=== PATIENT | male | born 1970 | race Two or more races ===

== ENCOUNTER 2016-07-12 10:41 | Inpatient (IN) | payer MEDICAID ==
[~2016-07-12] VITALS: Ht 175.3 cm; Wt 74.9 kg
[~2016-07-12 10:41] MED LIST: ASPI81CH43; ENAL5TAB92 PO; GABA300C PO; HUMOLOG; HYDR-1421; IBUP200C14; INSLANTI SC; MULTCAP45; NAPR220C; [UNRECOGNIZED DRUG - CODE]
[2016-07-12 11:08] LABS: Basophils # (auto) 0.1 uL; Basophils % (auto) 1.8 % (0.0-2.0); Eosinophils # (auto) 0.1 uL; Eosinophils % (auto) 1.6 % (0.0-7.0); Hematocrit 47.3 % (41.0-53.0); Hemoglobin 15.9 g/dL (13.5-17.5); Lymphocytes # (auto) 1.4 uL; Lymphocytes % (auto) 35.2 % (10.0-50.0); Mean Corpuscular Hgb Conc. 33.7 g/dL (32.0-36.0); Mean Corpuscular Volume 97.8 fL (80.0-100.0); Mean Platelet Volume 7.5 fL (7.4-10.4); Monocytes # (auto) 0.3 uL; Monocytes % (auto) 8.8 % (0.0-12.0); Neutrophils # (auto) 2.1 uL; Neutrophils % (auto) 52.6 % (37.0-80.0); Platelet Count (auto) 186 10^3/uL (140-450); Red Cell Distribution Width 14.4 % (11.6-16.0); White Blood Cell 3.9 10^3/uL (4.4-10.8)
[2016-07-12] MEDS ORDERED: SODIUM CHLORIDE 0.9% 1,000 ML IVB ONE (11:34)
[2016-07-12 11:42] LABS: Albumin 3.7 g/dL (3.4-5.0); Alkaline Phosphatase 127 U/L (45-117); Anion Gap 17 (5-15); Aspartate Aminotransferase 163 U/L (15-37); BUN/Creatinine Ratio 8.4; Bilirubin, Total 0.8 mg/dL (0.2-1.0); Blood Urea Nitrogen 9 mg/dL (7-18); Calcium 9.2 mg/dL (8.5-10.1); Carbon Dioxide 24 mmol/L (21-32); Chloride 98 mmol/L (98-107); GFR African American 97 mL/min; GFR Non-African American 80 mL/min; Glucose 287 mg/dL (74-106); Sodium 139 mmol/L (136-145); Total Protein 7.7 g/dL (6.4-8.2)
[2016-07-12] MEDS ORDERED: FAMOTIDINE 20 MG TAB PO ONE (11:45)
[2016-07-12 11:55] LABS: Magnesium 2.4 mg/dL (1.6-2.6)
[2016-07-12 12:01] LABS: Potassium 5.9 mmol/L (3.5-5.1)
[2016-07-12] MEDS ORDERED: ATOR20TA50 PO (12:24)
[2016-07-12] MEDS ORDERED: TRAZ50TA2 PO (12:25)
[2016-07-12] MEDS ORDERED: DIPH2.5T73 PO (12:26)
[2016-07-12] MEDS ORDERED: SIMV10TA84 PO (12:29)
[2016-07-12] MEDS: THIAMINE INJ 100 MG, MULTIPLE VITAMIN 10 ML, FOLIC ACID 1 MG, MAGNESIUM SULF SDV 50% 8 ... IV SCH ×5 (12:29)
[2016-07-12] MEDS ORDERED: CALCIUM CHL 100MG/ML 1,000 MG in D5W 5% 100 ML IV ONE (13:15)
[2016-07-12] MEDS ORDERED: InsuLIN REG 1unit/0.01ml Soln (100units/ml) IV ONE (13:15)
[2016-07-12] MEDS ORDERED: ALBUTEROL SULF 2.5 MG/0.5ML(0.5%) NEB SOLN NEB ONE (13:15)
[2016-07-12] MEDS ORDERED: NALBUPHINE HCL 10 MG/1ml INJECTION IV ONE (13:15)
[2016-07-12] MEDS ORDERED: ONDANSETRON HCL 4 MG/2 ML VIAL IV ONE (13:15)
[2016-07-12] MEDS ORDERED: SODIUM BICARBONATE 8.4 % INJ 50ML VIAL IV ONE (13:15)
[2016-07-12] MEDS ORDERED: chlordiazePOXIDE HCL 5 MG CAP PO ONE (15:45)
[2016-07-12] MEDS ORDERED: NITROGLYCERIN 0.4 MG SL TAB SL PRN (15:45)
[2016-07-12] MEDS ORDERED: MORPHINE SULF INJ 2 MG/ML SYRINGE 1ML IV PRN (15:45)
[2016-07-12] MEDS ORDERED: DEXTROSE (50%) 50ML SYRG IV PRN (15:45)
[2016-07-12] MEDS ORDERED: THIAMINE HCL 100 MG/ML 2ML VIAL IV ONE (15:45)
[2016-07-12] MEDS ORDERED: LACTULOSE 20Gm/30ML SOLN PO PRN (15:45)
[2016-07-12] MEDS: SODIUM CHLORIDE 0.9% 1,000 ML IV SCH (16:10)
[2016-07-12] MEDS: ACCU-CHEK COMFORT CURVE STRIP VI SCH ×3 (16:10→23:48)
[2016-07-12] MEDS: InsuLIN REG 1unit/0.01ml Soln (100units/ml) SC SCH ×3 (16:10→23:52)
[2016-07-12] MEDS ORDERED: LORazepam 0.5 MG TAB PO PRN (17:45)
[2016-07-12] MEDS ORDERED: PROCHLORPERAZINE EDISYLATE 5 MG/ML 2ML VIAL IV PRN (17:45)
[2016-07-12] MEDS ORDERED: MORPHINE SULFATE 4 MG/ML SYRG IV PRN (17:45)
[2016-07-12] MEDS ORDERED: ACETAMINOPHEN 500 MG TAB PO PRN (17:45)
[2016-07-12] MEDS ORDERED: TEMAZEPAM 15 MG CAP PO PRN (17:45)
[2016-07-12] MEDS ORDERED: LORazepam 2MG/ML-1ML VIAL IV PRN (17:45)
[2016-07-12] MEDS: chlordiazePOXIDE HCL 5 MG CAP PO SCH ×2 (17:46→23:48)
[2016-07-12] MEDS ORDERED: DIPH25CA66 PO (19:33)
[2016-07-12] MEDS ORDERED: LOP2C PO (19:33)
[2016-07-12] MEDS ORDERED: MULTCHW OR (19:33)
[2016-07-12 20:34] LABS: BUN/Creatinine Ratio 11.3; Calcium 8.6 mg/dL (8.5-10.1); Potassium 4.2 mmol/L (3.5-5.1)
[2016-07-12 22:00] VITALS: BP 161/100
[2016-07-12 22:12] LABS: Urine Bilirubin Negative (Negative); Urine Color Yellow (Yellow); Urine Mucus FEW (None Seen); Urine Nitrite Negative (Negative); Urine RBC 1 /hpf (0 - 3); Urine Squamous Epithelial Cell FEW /hpf (<5); Urine Urobilinogen Normal (Negative); Urine pH 5.5 (5.0-8.0)
[2016-07-12 22:15] LABS: Urine Blood 2+ /uL (Negative); Urine Glucose 4+ mg/dL (Normal); Urine Ketone 2+ (Negative)
[2016-07-13] MEDS: SODIUM CHLORIDE 0.9% 1,000 ML IV SCH ×3 (01:48→21:41)
[2016-07-13] MEDS: ACCU-CHEK COMFORT CURVE STRIP VI SCH ×5 (03:40→20:00)
[2016-07-13] MEDS: InsuLIN REG 1unit/0.01ml Soln (100units/ml) SC SCH ×5 (03:40→20:49)
[2016-07-13 05:00] VITALS: BP 125/79
[2016-07-13] MEDS: chlordiazePOXIDE HCL 5 MG CAP PO SCH ×4 (05:41→23:51)
[2016-07-13 06:15] LABS: Potassium 4.7 mmol/L (3.5-5.1)
[2016-07-13 06:37] LABS: Albumin 2.9 g/dL (3.4-5.0); Bilirubin, Total 1.4 mg/dL (0.2-1.0); Calcium 8.7 mg/dL (8.5-10.1)
[2016-07-13 08:00] VITALS: BP 130/78
[2016-07-13] MEDS: THIAMINE HCL 100 MG/ML 2ML VIAL IV SCH (09:32)
[2016-07-13] MEDS: HYDROcodone-ACET 5/325MG TAB PO PRN ×2 (09:33→17:32)
[2016-07-13 12:00] VITALS: BP 127/80
[2016-07-13] MEDS: THIAMINE INJ 100 MG, MULTIPLE VITAMIN 10 ML, FOLIC ACID 1 MG, MAGNESIUM SULF SDV 50% 8 ... IV SCH ×5 (12:12)
[2016-07-13 17:00] VITALS: BP 131/82
[2016-07-13 21:30] VITALS: BP 136/83
[2016-07-14] MEDS: InsuLIN REG 1unit/0.01ml Soln (100units/ml) SC SCH ×7 (00:18→23:55)
[2016-07-14] MEDS: ACCU-CHEK COMFORT CURVE STRIP VI SCH ×7 (00:18→23:55)
[2016-07-14 05:00] VITALS: BP 142/87
[2016-07-14] MEDS: HYDROcodone-ACET 5/325MG TAB PO PRN (05:33)
[2016-07-14] MEDS: chlordiazePOXIDE HCL 5 MG CAP PO SCH ×4 (06:00→23:55)
[2016-07-14 06:18] LABS: Basophils # (auto) 0 uL; Basophils % (auto) 0.3 % (0.0-2.0); Eosinophils # (auto) 0.1 uL; Eosinophils % (auto) 1.3 % (0.0-7.0); Hematocrit 32.7 % (41.0-53.0); Hemoglobin 11.1 g/dL (13.5-17.5); Lymphocytes % (auto) 18.8 % (10.0-50.0); Mean Corpuscular Hemoglobin 33.4 pg (28.0-32.0); Mean Corpuscular Hgb Conc. 34.1 g/dL (32.0-36.0); Mean Corpuscular Volume 98.1 fL (80.0-100.0); Mean Platelet Volume 9.3 fL (7.4-10.4); Monocytes # (auto) 0.6 uL; Monocytes % (auto) 11.8 % (0.0-12.0); Neutrophils # (auto) 3.6 uL; Neutrophils % (auto) 67.8 % (37.0-80.0); Platelet Count (auto) 135 10^3/uL (140-450); Red Cell Distribution Width 14.2 % (11.6-16.0); White Blood Cell 5.3 10^3/uL (4.4-10.8)
[2016-07-14 06:34] LABS: Partial Thromboplastin Time 20.8 sec (22.64-33.71); Prothrombin Time 9.4 sec (9.37-12.3)
[2016-07-14 06:47] LABS: INR 0.87 (0.9-1.15)
[2016-07-14 06:49] LABS: Potassium 4.2 mmol/L (3.5-5.1)
[2016-07-14 06:54] LABS: BUN/Creatinine Ratio 15.1; Calcium 8.4 mg/dL (8.5-10.1)
[2016-07-14 06:56] LABS: Bilirubin, Total 1.2 mg/dL (0.2-1.0); Total Protein 6.3 g/dL (6.4-8.2)
[2016-07-14] MEDS: SODIUM CHLORIDE 0.9% 1,000 ML IV SCH ×2 (07:41→17:24)
[2016-07-14 08:00] VITALS: BP 108/79
[2016-07-14] MEDS: THIAMINE HCL 100 MG/ML 2ML VIAL IV SCH (09:42)
[2016-07-14] MEDS: THIAMINE INJ 100 MG, MULTIPLE VITAMIN 10 ML, FOLIC ACID 1 MG, MAGNESIUM SULF SDV 50% 8 ... IV SCH ×5 (12:00)
[2016-07-14] MEDS ORDERED: CLINDAMYCIN 600MG IV 50 ML IV ONE (12:16)
[2016-07-14] MEDS ORDERED: fentaNYL CITRATE 100 MCG/2 ML VL ONE ×2 (12:54→13:39)
[2016-07-14] MEDS ORDERED: MIDAZOLAM HCL 1MG/1ML-2 ML VIAL ONE (12:54)
[2016-07-14] MEDS ORDERED: ROCURONIUM 10MG/ML 10ML VIAL IV ONE (12:55)
[2016-07-14] MEDS ORDERED: GLYCOPYRROLATE 0.2 MG/ML 1ML VIAL IV ONE (12:57)
[2016-07-14] MEDS ORDERED: PROPOFOL 10 MG/ML 20 ML IV ONE (12:57)
[2016-07-14] MEDS ORDERED: ONDANSETRON HCL 4 MG/2 ML VIAL IV ONE ×2 (12:57→15:00)
[2016-07-14] MEDS ORDERED: NEOSTIGMINE 1 MG/ML INJ (10mg/10ML VIAL) IV ONE (12:57)
[2016-07-14] MEDS ORDERED: DEXAMETHASONE SOD PHOS 10MG/1ML VIAL INJ IV ONE (12:57)
[2016-07-14] MEDS ORDERED: LABETALOL HCL 5 MG/ML 4ML SYRINGE IV PRN (15:00)
[2016-07-14] MEDS: HYDROmorphone HCL 2 MG/ML VL IV PRN ×3 (15:04→15:24)
[2016-07-14] MEDS ORDERED: DEXTROSE (50%) 50ML SYRG IV PRN (20:15)
[2016-07-14] MEDS ORDERED: InsuLIN REG 1unit/0.01ml Soln (100units/ml) IV ONE (20:15)
[2016-07-14 21:30] VITALS: BP 115/65
[2016-07-14] MEDS ORDERED: INSULIN DETEMIR(LEVEMIR) 1unit/0.01ml Soln (100units/ml) SC SCH (22:00)
[2016-07-15] MEDS: InsuLIN REG 1unit/0.01ml Soln (100units/ml) SC SCH ×3 (04:00→12:00)
[2016-07-15] MEDS: ACCU-CHEK COMFORT CURVE STRIP VI SCH ×3 (04:05→12:05)
[2016-07-15 05:00] VITALS: BP 122/75
[2016-07-15] MEDS: chlordiazePOXIDE HCL 5 MG CAP PO SCH ×2 (05:40→12:05)
[2016-07-15] MEDS: HYDROcodone-ACET 5/325MG TAB PO PRN (05:41)
[2016-07-15 06:15] LABS: Basophils # (auto) 0 uL; Basophils % (auto) 0.1 % (0.0-2.0); Eosinophils # (auto) 0 uL; Eosinophils % (auto) 0.5 % (0.0-7.0); Hematocrit 26.4 % (41.0-53.0); Hemoglobin 9.1 g/dL (13.5-17.5); Lymphocytes % (auto) 15.8 % (10.0-50.0); Mean Corpuscular Hemoglobin 33.7 pg (28.0-32.0); Mean Corpuscular Hgb Conc. 34.5 g/dL (32.0-36.0); Mean Corpuscular Volume 97.5 fL (80.0-100.0); Mean Platelet Volume 9.3 fL (7.4-10.4); Monocytes # (auto) 0.7 uL; Monocytes % (auto) 10.4 % (0.0-12.0); Neutrophils # (auto) 4.8 uL; Neutrophils % (auto) 73.2 % (37.0-80.0); Platelet Count (auto) 109 10^3/uL (140-450); Red Cell Distribution Width 13.4 % (11.6-16.0); White Blood Cell 6.5 10^3/uL (4.4-10.8)
[2016-07-15 06:24] LABS: Albumin 2.5 g/dL (3.4-5.0); BUN/Creatinine Ratio 24.2; Calcium 8.2 mg/dL (8.5-10.1); Potassium 3.7 mmol/L (3.5-5.1)
[2016-07-15 06:27] LABS: Bilirubin, Total 0.9 mg/dL (0.2-1.0); Total Protein 5.7 g/dL (6.4-8.2)
[2016-07-15 09:00] VITALS: BP 116/67
[2016-07-15] MEDS: THIAMINE HCL 100 MG/ML 2ML VIAL IV SCH (09:26)
[2016-07-15] MEDS: THIAMINE INJ 100 MG, MULTIPLE VITAMIN 10 ML, FOLIC ACID 1 MG, MAGNESIUM SULF SDV 50% 8 ... IV SCH ×5 (12:43)
[2016-07-15 13:00] VITALS: BP 128/73
[2016-07-15] MEDS ORDERED: SODIUM CHLORIDE 0.9% 1,000 ML IV SCH (15:41)
== END 2016-07-15 15:10 | disposition left against medical advice (07) | DRG 315 ==
LOC: EDBD 10:41 → ER 10:41 → TELE 10:42 → TELE-WESTW 16:55
PROVIDERS: ADMIT Internal Medicine; ATTEND Internal Medicine
PROC: 0PSG06Z Reposition Left Humeral Shaft with Intramedullary Internal Fixation Device, Open Approach (ICD-10-PCS; principal; 2016-07-14 12:57)
DX: S42.332A Displaced oblique fracture of shaft of humerus, left arm, initial encounter for closed fracture (principal); E11.40 Type 2 diabetes mellitus with diabetic neuropathy, unspecified; E11.65 Type 2 diabetes mellitus with hyperglycemia; I10 Essential (primary) hypertension; F10.10 Alcohol abuse, uncomplicated; E87.5 Hyperkalemia; F17.210 Nicotine dependence, cigarettes, uncomplicated; F32.9 Major depressive disorder, single episode, unspecified; E78.5 Hyperlipidemia, unspecified; W01.0XXA Fall on same level from slipping, tripping and stumbling without subsequent striking against object, initial encounter; Y93.89 Activity, other specified; Y92.89 Other specified places as the place of occurrence of the external cause; Y99.8 Other external cause status; Z82.49 Family history of ischemic heart disease and other diseases of the circulatory system; Z83.3 Family history of diabetes mellitus; Z88.0 Allergy status to penicillin; Z91.018 Allergy to other foods; Z84.89 Family history of other specified conditions
CPT/HCPCS: 36415; 71010; 73030; 73060; 76000; 80048; 80053; 80320; 81001; 82962; 83036; 83690; 83735; 84484; 85025; 85610; 85730; 93005; 93306; 94640; 96361; 96365; 96375; G0434; J1100; J1815; J2250; J2405; J2704; J3490; J7060

== ENCOUNTER 2016-09-15 15:15 | Emergency (ER) | payer MEDICAID ==
[~2016-09-15] VITALS: Ht 175.3 cm; Wt 69.4 kg
[~2016-09-15 15:15] MED LIST changes: +ATOR20TA50 PO; +DIPH2.5T73 PO; +DIPH25CA66 PO; -HYDR-1421; -IBUP200C14; +LOP2C PO; -MULTCAP45; +MULTCHW OR; -NAPR220C; +SIMV10TA84 PO; +TRAZ50TA2 PO; -[UNRECOGNIZED DRUG - CODE]
[2016-09-15] MEDS ORDERED: cloNIDine HCL 0.1 MG TAB PO ONE (16:00)
[2016-09-15 17:17] VITALS: BP 164/95
== END 2016-09-15 17:19 | disposition home or self-care (01) ==
LOC: ER 15:17
DX: I10 Essential (primary) hypertension (principal); E11.9 Type 2 diabetes mellitus without complications; E78.5 Hyperlipidemia, unspecified; F17.210 Nicotine dependence, cigarettes, uncomplicated; Z88.0 Allergy status to penicillin; Z88.8 Allergy status to other drugs, medicaments and biological substances; Z79.899 Other long term (current) drug therapy
CPT/HCPCS: 82962; 93005

== ENCOUNTER 2017-03-27 06:53 | Emergency (ER) | payer MEDICAID ==
[~2017-03-27] VITALS: Ht 167.6 cm; Wt 59.0 kg
[2017-03-27 07:55] LABS: Basophils # (auto) 0 uL; Eosinophils # (auto) 0 uL; Hemoglobin 14.9 g/dL (13.5-17.5); Monocytes # (auto) 0.4 uL; Neutrophils # (auto) 3.5 uL; White Blood Cell 4.7 10^3/uL (4.4-10.8)
[2017-03-27 07:57] LABS: Eosinophils % (auto) 0.2 % (0.0-7.0); Hematocrit 43.3 % (41.0-53.0); Lymphocytes # (auto) 0.7 uL; Lymphocytes % (auto) 15.3 % (10.0-50.0); Mean Corpuscular Hgb Conc. 34.5 g/dL (32.0-36.0); Mean Corpuscular Volume 98.6 fL (80.0-100.0); Monocytes % (auto) 8.7 % (0.0-12.0); Neutrophils % (auto) 74.8 % (37.0-80.0); Nucleated Red Blood Cells % 0.1 %; Platelet Count (auto) 125 10^3/uL (140-450); Red Blood Cells 4.39 10^6/uL (4.5-5.90); Red Cell Distribution Width 13.1 % (11.8-14.3)
[2017-03-27 08:22] LABS: Alanine Aminotransferase 97 U/L (16-61); Alkaline Phosphatase 219 U/L (45-117); Anion Gap 19 (5-15); Aspartate Aminotransferase 247 U/L (15-37); BUN/Creatinine Ratio 8.6; Bilirubin, Total 0.5 mg/dL (0.2-1.0); Blood Urea Nitrogen 6 mg/dL (7-18); Calcium 8.2 mg/dL (8.5-10.1); Carbon Dioxide 22 mmol/L (21-32); Chloride 92 mmol/L (98-107); GFR African American 157 mL/min; GFR Non-African American 130 mL/min; Glucose 220 mg/dL (74-106); Potassium 3.9 mmol/L (3.5-5.1); Sodium 133 mmol/L (136-145); Total Protein 7.7 g/dL (6.4-8.2)
[2017-03-27] MEDS ORDERED: THIAMINE HCL 100 MG/ML 2ML VIAL IM ONE (13:45)
[2017-03-27 15:28] VITALS: BP 130/86
== END 2017-03-27 15:36 | disposition home or self-care (01) ==
LOC: EDBD 06:53 → ER 06:53
DX: F10.20 Alcohol dependence, uncomplicated (principal); R74.8 Abnormal levels of other serum enzymes; M25.522 Pain in left elbow; R42 Dizziness and giddiness; E11.9 Type 2 diabetes mellitus without complications; E78.5 Hyperlipidemia, unspecified; I10 Essential (primary) hypertension; Z79.4 Long term (current) use of insulin; Z79.82 Long term (current) use of aspirin; Z88.0 Allergy status to penicillin; W01.0XXA Fall on same level from slipping, tripping and stumbling without subsequent striking against object, initial encounter; Y93.89 Activity, other specified; Y99.8 Other external cause status; Y92.89 Other specified places as the place of occurrence of the external cause
CPT/HCPCS: 36415; 70450; 71020; 73080; 80053; 84484; 85025; 93005; 96372; 99285; J3411; J7030